=== PATIENT | male | born 1955 | race Asian ===

== ENCOUNTER 2018-10-29 12:20 | Emergency (ER) | payer BC ==
[2018-10-29] MEDS: ONDANSETRON 4 MG INJ IV (13:13)
[2018-10-29] MEDS: morphine 4 MG/ML VIAL IV ×2 (13:13→17:08)
[2018-10-29 13:15] LABS: ADD MAN DIFF? NO
[2018-10-29 13:20] LABS: BASOPHIL # 0.1 10^3/ul (0.0-0.1); BASOPHILS % 0.5 % (0.0-2.0); EOSINOPHILS # 0.1 10^3/ul (0.0-0.5); EOSINOPHILS % 0.9 % (0.0-7.0); HEMATOCRIT 43.7 % (42.0-52.0); HEMOGLOBIN 15.2 g/dl (14.0-18.0); LYMPHOCYTES % 10.3 % (15.0-51.0); MEAN CORPUSCULAR HEMOGLOBIN 33.4 pg (29.0-33.0); MEAN CORPUSCULAR HGB CONC 34.8 g/dl (32.0-37.0); MEAN PLATELET VOLUME 9.1 fl (7.4-10.4); MONOCYTES % 10.1 % (0.0-11.0); NEUTROPHIL # 7.3 10^3/ul (1.6-7.5); PLATELET COUNT 221 10^3/UL (140-415); RED BLOOD COUNT 4.55 10^6/ul (4.70-6.10); RED CELL DISTRIBUTION WIDTH 12.1 % (11.5-14.5)
[2018-10-29 13:20] LABS: WHITE BLOOD COUNT 9.4 10^3/ul (4.8-10.8)
[2018-10-29 13:40] LABS: PROTIME 11.2 Sec (11.9-14.9); PT RATIO 0.9
[2018-10-29] MEDS: KETOROLAC 30 MG INJ IV (13:40)
[2018-10-29 13:41] LABS: PARTIAL THROMBOPLASTIN TIME 32.6 Sec (23.0-35.0)
[2018-10-29 13:44] LABS: ANION GAP 14 (5-13); BLOOD UREA NITROGEN 12 mg/dl (7-20); C-REACTIVE PROTEIN 1.4 mg/dl (0.0-0.9); CALCIUM 9.9 mg/dl (8.4-10.2); CARBON DIOXIDE 25 mmol/L (21-31); CHLORIDE 93 mmol/L (97-110); CREATININE 0.71 mg/dl (0.61-1.24); Estimated GFR > 60 mL/min (>60); GLUCOSE 122 mg/dl (70-220); POTASSIUM 3.7 mmol/L (3.5-5.1); SODIUM 132 mmol/L (135-144); URIC ACID 6.1 mg/dl (3.1-7.9)
[2018-10-29] MEDS: LIDOCAINE 1% (MPF) 5 ML VIAL INJ (17:08)
== END 2018-10-29 18:46 | disposition home or self-care (01) ==
LOC: E/R 12:20
DX: M25.021 Hemarthrosis, right elbow (principal); M79.601 Pain in right arm
CPT/HCPCS: 20605; 73080-RT; 80048; 84560; 85025; 85610; 85651; 85730; 86140; 87070; 96374; 96375; 96376; 99284-25